=== PATIENT | female | born 1955 | race Caucasian/White ===

== ENCOUNTER → 2016-09-29 09:07 | Outpatient (CLI) | payer OTHER ==
[2016-08-05 16:26] VITALS: BMI 32.3
[~2016-09-29 09:07] MED LIST: ALENDRONATE SOD35 MG PO; ASCORBIC ACID500 MG PO; ASPIRIN325 MG PO; FERROUS SULFAT325 MG PO; FISH OIL 1,0001 CA1 PO; GAS-X80 MG PO; HYDROCODON-ACE1 EAC7 PO; MOBIC7.5 MG PO; MULTIPLE VITAMI1 TA1 PO; PROTONIX40 MG PO; TOPROL XL50 MG PO; ZANTAC300 MG PO; ZOFRAN ODT4 MG/UDTAB PO; ZOLOFT50 MG PO
== END | disposition home or self-care (01) ==
LOC: D.RAD 09:00
DX: R13.10 Dysphagia, unspecified (principal)